=== PATIENT | male | born 1985 | race Caucasian/White ===

== ENCOUNTER 2017-05-04 19:03 | Inpatient (IN) | payer BC ==
[~2017-05-04] VITALS: Ht 185.4 cm; Wt 93.8 kg
[2017-05-04 20:09] LABS: BASOPHIL (%) 0.2 % (0-1); EOSINOPHIL (%) 0 % (0-5); HEMATOCRIT 46.1 % (38.0-50.0); HEMOGLOBIN 16.3 G/DL (12.5-16.6); IMMATURE GRANULOCYTE (%) 0.6 % (0.0-0.7); LYMPHOCYTE (%) 5.5 % (15-42); LYMPHOCYTE COUNT 0.9 K/uL (1.0-2.8); MCHC 35.4 G/DL (30.0-36.0); MCV 84.9 FL (86-99); MONOCYTE (%) 4.9 % (3-12); MONOCYTE COUNT 0.8 K/uL (0-0.8); NEUTROPHIL (%) 88.8 % (45-76); NEUTROPHIL COUNT 13.8 K/uL (1.8-6.4); PLATELET COUNT 220 K/uL (156-360); RBC DIS.WIDTH-CV 12.3 % (11.8-14.6); RBC DIS.WIDTH-SD 37.7 % (39-53); RED BLOOD COUNT 5.43 M/uL (4.00-5.50); WHITE BLOOD COUNT 15.5 K/uL (4.1-10.2)
[2017-05-04 20:18] LABS: CHLORIDE 105 mEq/L (99-109); POTASSIUM 3.8 mEq/L (3.7-5.4); SODIUM 138 mEq/L (136-147)
[2017-05-04 20:19] LABS: GLUCOSE 100 mg/dL (70-99)
[2017-05-04 20:23] LABS: CREATININE 1.1 mg/dL (0.6-1.3); GFR ESTIMATE (CALCULATED) > 59 mL/min/ (58.99-99999)
[2017-05-04 20:24] LABS: UREA NITROGEN (BUN) 15 mg/dL (9-23)
[2017-05-05 02:23] VITALS: BP 136/70
[2017-05-05 08:08] VITALS: BP 121/62
[2017-05-05] MEDS ORDERED: ENDOCET 5-3251 EACH PO (08:52)
[2017-05-05 12:10] VITALS: BP 118/60
== END 2017-05-05 13:02 | disposition home or self-care (01) | DRG 482 ==
LOC: EME 19:03 → SDC 23:00 → EME 23:00 → 2SOUTH 05-05 00:20 → ENRESERV 05-05 00:45 → 3EAST 05-05 02:16
PROVIDERS: Emergency Medicine
PROC: 0QS634Z Reposition Right Upper Femur with Internal Fixation Device, Percutaneous Approach (ICD-10-PCS; principal; 2017-05-05)
DX: S72.001A Fracture of unspecified part of neck of right femur, initial encounter for closed fracture (principal); Z87.81 Personal history of (healed) traumatic fracture; V00.321A Fall from snow-skis, initial encounter; Y93.29 Activity, other involving ice and snow; Y92.9 Unspecified place or not applicable
CPT/HCPCS: 73502; 76000; 80048; 85025; 99281; 99285; C1713; J0690; J1170; J2175; J2250; J2405; J3010; J7030; J7120